=== PATIENT | female | born 1935 | race Caucasian/White ===

== ENCOUNTER 2018-01-11 10:11 | Outpatient (CLI) | payer OTHER | END 2018-01-11 11:54 | disposition home or self-care (01) | LOC: SONOGRAMA 10:11 | DX: E04.2 Nontoxic multinodular goiter (principal) ==

== ENCOUNTER → 2018-06-13 | Emergency (ER) | payer OTHER ==
[~2018-06-13] VITALS: Ht 157.5 cm; Wt 63.0 kg
[~2018-06-13] MED LIST: IRBESARTAN-HCT1 EAC1; NORVASC2.5 MG; OMEPRAZOLE40 MG; SIMVASTATIN20 MG; SYNTHROID75 MCG
== END | disposition home or self-care (01) ==
LOC: ER 17:49
DX: J11.1 Influenza due to unidentified influenza virus with other respiratory manifestations (principal); J06.9 Acute upper respiratory infection, unspecified

== ENCOUNTER 2020-02-17 09:46 | Outpatient (CLI) | payer OTHER | END 2020-02-17 09:47 | disposition home or self-care (01) | LOC: SONOGRAMA 09:46 | PROVIDERS: ATTEND Pathology Anatomic Pathology & Clinical Pathology | DX: E04.2 Nontoxic multinodular goiter (principal) ==